=== PATIENT | female | born 1990 | race Caucasian/White ===

== ENCOUNTER → 2017-10-06 | Outpatient (CLI) | payer OTHER ==
[~2017-10-06] MED LIST: FRCT/ PO; METH4PAK4 PO
--- NOTE | 2017-10-06 11:56 | DIAGNOSTIC IMAGING REPORT ---
ULTRASOUND OF THE PELVIS CLINICAL HISTORY: Left pelvic pain. COMPARISON STUDY: Pelvic ultrasound dated 12/26/2014. TECHNIQUE: Real-time, grayscale, and color flow sonography of the pelvis is performed both transabdominally and endovaginally. Images are reviewed in the transverse and longitudinal planes. FINDINGS: Uterus: The retroverted uterus is normal in size and echotexture, measuring 8.2 x 3.8 x 3.8 cm. Endometrium: The endometrium is normal in appearance, and the endometrial stripe is normal in thickness measuring up to 0.6 cm. An intrauterine device is in place. Ovaries: The ovaries are normal in size and morphology. The right ovary measures 5.6 x 3.3 x 4.5 cm and the left ovary measures 3.0 x 1.7 x 2.5 cm. A 4.9 cm cyst is noted in the right ovary. Additional follicles are seen bilaterally. A 2.0 cm complex within/adjacent the right ovary likely represents a small hemorrhagic cyst. Normal Doppler waveforms are shown within both ovaries. Pelvis: There is no free fluid in the cul-de-sac. No concerning adnexal lesion is seen. IMPRESSION: 1. An intrauterine device is in place. 2. There is a 4.9 cm simple appearing cyst identified in the right ovary. There is no sonographic evidence of ovarian torsion at the time of examination. 3. A 2.0 cm hemorrhagic follicle is suggested within or adjacent to the right ovary. Electronically signed by: Иван Urias M.D. 10/06/2017 11:55 AM Dictated Date/Time: 10/06/2017 11:47 AM
== END | disposition home or self-care (01) ==
LOC: C.ULTR 10:38
PROVIDERS: ATTEND Nurse Practitioner Obstetrics & Gynecology
DX: M54.5 Low back pain (principal); N83.201 Unspecified ovarian cyst, right side

== ENCOUNTER → 2017-12-04 | Outpatient (CLI) | payer OTHER ==
[~2017-12-04] MED LIST changes: +GADAVIST IV PRN
--- NOTE | 2017-12-05 09:01 | DIAGNOSTIC IMAGING REPORT ---
MRI OF THE PELVIS WITH AND WITHOUT CONTRAST CLINICAL HISTORY: Adnexal mass. COMPARISON STUDY: Pelvic ultrasound October 06, 2017. TECHNIQUE: Utilizing a 1.5 Lynn magnet and dedicated coil, multiplanar, multi echo imaging of the pelvis was performed pre and postcontrast administration. Injection of 7.5 cc of Gadavist IV was uneventful. FINDINGS: An intrauterine device is appropriately positioned. The left ovary is normal, containing multiple follicles. A 3 cm T2 hyperintense nonenhancing right ovarian lesion likely reflects a dominant follicle. Along the medial aspect of the right ovary, there is a 2.2 x 1.8 cm T2 hypointense, T1 intermediate signal intensity briskly enhancing lesion which corresponds to the finding on ultrasound of October 06, 2017. Although adjacent to the right ovary, this appears to be separate from the right ovary as well as separate from the uterus. This is adjacent to the broad ligament. No additional pelvic masses are identified on this exam. There is no pelvic lymphadenopathy or ascites. There is irregularity of the bilateral sacroiliac joints associated edema or enhancement. IMPRESSION: 1. 2.2 x 1.8 cm T2 hypointense enhancing right adnexal mass which corresponds to the finding on ultrasound of October 06, 2017. Allowing for differences in technique, no significant change since previous exam. This appears separate from the right ovary and uterus and is adjacent to the broad ligament. This may reflect a pedunculated fibroid although is pathologically indeterminate. An ovarian fibrous tumor could appear similar. Gynecologic consultation is recommended. 2. Irregularity of the bilateral sacroiliac joints. This may reflect osteoarthritis. Sacroiliitis could appear similar although the findings do not appear acute given lack of enhancement and edema. Electronically signed by: Dwight Joya M.D. 12/05/2017 9:00 AM Dictated Date/Time: 12/04/2017 6:32 PM
== END | disposition home or self-care (01) ==
LOC: C.MRI 17:05
PROVIDERS: ATTEND Nurse Practitioner Obstetrics & Gynecology
DX: N94.9 Unspecified condition associated with female genital organs and menstrual cycle (principal)

== ENCOUNTER → 2018-01-15 | Outpatient (CLI) | payer OTHER ==
--- NOTE | 2018-01-15 08:07 | DIAGNOSTIC IMAGING REPORT ---
MRI OF THE BRAIN COMBO INTERNAL AUDITORY CANAL PROTOCOL CLINICAL HISTORY: Chronic migraine headache. Vertigo and memory loss. COMPARISON STUDY: MRI of the brain dated 07/29/2015. TECHNIQUE: MRI of the brain was performed utilizing various T1 and T2-weighted sequences in the axial, sagittal, and coronal planes. Contrast-enhanced sequences were acquired following the administration of 7.5 cc of Gadavist. Additional high-resolution imaging was performed through the skull base both pre and post contrast to assess the internal auditory canals. FINDINGS: Brain parenchyma: The brain parenchyma is normal in appearance. There is no hemorrhage or mass effect. There is no restricted diffusion to suggest acute ischemia. No enhancing mass lesion is identified on the postcontrast images. Young-white matter differentiation is preserved. No extra-axial fluid collection is seen. The cerebellar tonsils are normal in configuration. Ventricles, sulci, and cisterns: Normal in configuration. Internal auditory canals: There is no enhancing mass lesion identified in the cerebellopontine angle bilaterally. No mass or abnormal enhancement is seen along the course of the internal auditory canals. The middle ear structures are normal as visualized. Pituitary and sella: Unremarkable. Intracranial vasculature: Normal flow voids are maintained at the skull base. Orbits: The bony orbits are grossly intact. Orbital contents are normal in appearance. Sinuses and mastoids: Clear. Calvarium: Unremarkable. Cervical cord: Partially visualized cervical spinal cord is normal in morphology and signal intensity. IMPRESSION: 1. No acute intracranial abnormality. 2. Unremarkable MRI assessment of the internal auditory canals. Electronically signed by: Иван Urias M.D. 01/15/2018 8:06 AM Dictated Date/Time: 01/15/2018 8:03 AM
== END | disposition home or self-care (01) ==
LOC: C.MRI 06:39
PROVIDERS: ATTEND Physician Assistant
DX: R51 Headache (principal)